=== PATIENT | female | born 1985 | race African-American/Black ===

== ENCOUNTER 2021-10-17 04:55 | Inpatient (IN) | payer OTHER ==
[2021-10-16 14:30] LABS: Hemoglobin 11.4 g/dL (12.0-15.5); Mean Corpuscular HGB CONC 33.3 g/dL (32.0-36.0); Mean Corpuscular Hemoglobin 27.4 pg (27.0-33.0); Mean Corpuscular Volume 82.2 fl (81.6-98.3); Mean Platelet Volume 9.8 fl (7.4-10.4); Platelet Count 323 10x3/uL (150-450); RBC Distribution Width 15.2 % (11.5-14.5); Red Blood Cell (RBC) Count 4.16 10x6/uL (3.90-5.03); White Blood Cell (WBC) Count 10.5 10x3/uL (3.5-10.5)
[2021-10-16 15:28] LABS: Syphilis Antibody Nonreactive (Nonreactive); Syphilis Antibody Index 0.03 S/CO (<1.00 Non-Reactive)
[2021-10-16 15:29] LABS: Hep B Surf Ag Non-Reactive S/CO (NonReactive)
[2021-10-16 15:35] LABS: HBSAg Index 0.19 S/CO (0-0.99)
[2021-10-17 05:28] VITALS: BMI 38.9
[2021-10-17] MEDS ORDERED: Promethazine HCl 25 MG SUPP PR PRN (06:58)
[2021-10-17] MEDS ORDERED: Acetaminophen 500 MG TAB PO PRN (06:58)
[2021-10-17] MEDS ORDERED: Docusate 100 MG CAP PO PRN (06:58)
[2021-10-17] MEDS ORDERED: Meperidine HCl/PF 25 MG/ML VIAL SLOW IVP PRN (06:58)
[2021-10-17] MEDS ORDERED: Ondansetron HCl/PF 4 MG/2 ML Vial IVP PRN (06:58)
[2021-10-17] MEDS ORDERED: HYDROmorphone 2 MG/ML VIAL SLOW IVP PRN (06:58)
[2021-10-17] MEDS ORDERED: hydrALAZINE 20 MG/ML VIAL SLOW IVP PRN ×2 (06:58→09:02)
[2021-10-17] MEDS ORDERED: Moisturizing Cream (Eucerin) 113 GM JAR TOP PRN (06:58)
[2021-10-17] MEDS ORDERED: Naloxone HCl 0.4 mg/ml Vial IVP PRN ×2 (06:58)
[2021-10-17] MEDS ORDERED: Ketorolac Tromethamine 30 MG/ML VIAL IVP PRN (06:58)
[2021-10-17] MEDS ORDERED: Fentanyl 100 MCG/2 ML VIAL SLOW IVP PRN (06:58)
[2021-10-17] MEDS ORDERED: Famotidine/PF 20 mg/2ml Vial SLOW IVP PRN (06:58)
[2021-10-17] MEDS ORDERED: Ondansetron PF 4 MG/2 ML Vial IVP PRN ×3 (06:58→09:02)
[2021-10-17] MEDS ORDERED: Promethazine HCl 25 MG/ML VIAL IM PRN ×3 (06:58→09:02)
[2021-10-17] MEDS ORDERED: Naloxone HCl 0.4 mg/ml Vial IV PRN (06:58)
[2021-10-17] MEDS ORDERED: Bicitra 30 ML UDCUP PO PRN (06:58)
[2021-10-17] MEDS ORDERED: Ketorolac Tromethamine 30 MG/ML VIAL IVP SCH (07:00)
[2021-10-17] MEDS ORDERED: ceFAZolin 2 GM/Dextrose 50 ML 2 GM in Premix Bag 1 BAG IVPB SCH (07:00)
[2021-10-17] MEDS ORDERED: Lactated Ringer's 1,000 ML IV SCH (07:00)
[2021-10-17] MEDS ORDERED: Communication Order-Pharmacy FS SCH (07:00)
[2021-10-17] MEDS ORDERED: Ondansetron PF 4 MG/2 ML Vial ONE (07:04)
[2021-10-17] MEDS ORDERED: Fentanyl 100 MCG/2 ML VIAL ONE (07:04)
[2021-10-17] MEDS ORDERED: Morphine PF 10 MG/10 ML VIAL ONE (07:04)
[2021-10-17] MEDS ORDERED: Phenylephrine 10 MG/ML VIAL ONE (07:04)
[2021-10-17] MEDS ORDERED: Oxytocin 10 UNITS/ML VIAL ONE ×2 (07:05→08:39)
[2021-10-17] MEDS ORDERED: Ketorolac Tromethamine 30 MG/ML VIAL ONE ×2 (07:05→08:05)
[2021-10-17] MEDS ORDERED: Misoprostol 200 MCG TAB ONE (07:32)
[2021-10-17] MEDS ORDERED: Carboprost 250 MCG/ML AMP ONE (07:32)
[2021-10-17] MEDS ORDERED: diphenhydrAMINE 25 MG CAP PO PRN (09:02)
[2021-10-17] MEDS ORDERED: Lanolin Ointment 7 GM TUBE TOP PRN (09:02)
[2021-10-17] MEDS ORDERED: Boostrix 0.5 ML (Tdap) VIAL IM ONE (09:02)
[2021-10-17] MEDS ORDERED: Carboprost 250 MCG/ML AMP IM SCH (12:30)
[2021-10-17] MEDS: diphenhydrAMINE 50 MG/ML VIAL IVP PRN ×2 (12:37→17:34)
[2021-10-17] MEDS ORDERED: NS w/ Oxytocin 30 units 500 ML ONE (13:36)
[2021-10-17] MEDS: Ibuprofen 800 MG TAB PO SCH (17:22)
[2021-10-17] MEDS ORDERED: Diphenoxylate HCl/Atropine Tablet PO PRN (20:00)
[2021-10-17] MEDS: Docusate 100 MG CAP PO SCH (21:54)
[2021-10-17] MEDS: Labetalol HCl 100 MG TAB PO SCH (21:54)
[2021-10-18] MEDS: diphenhydrAMINE 50 MG/ML VIAL IVP PRN (00:17)
[2021-10-18 03:54] LABS: Mean Corpuscular HGB CONC 33.1 g/dL (32.0-36.0); Mean Corpuscular Hemoglobin 27.1 pg (27.0-33.0); Mean Platelet Volume 9.3 fl (7.4-10.4); Platelet Count 209 10x3/uL (150-450); RBC Distribution Width 15.5 % (11.5-14.5); Red Blood Cell (RBC) Count 2.95 10x6/uL (3.90-5.03); White Blood Cell (WBC) Count 11.8 10x3/uL (3.5-10.5)
[2021-10-18] MEDS: Ibuprofen 800 MG TAB PO SCH ×3 (08:22→17:00)
[2021-10-18] MEDS: HYDROcodone/Acetaminophen 5/325 mg Tablet PO PRN ×2 (09:53→17:00)
[2021-10-18] MEDS: Prenatal Vitamin 1 TAB PO SCH (09:53)
[2021-10-18] MEDS: Docusate 100 MG CAP PO SCH ×2 (09:53→21:24)
[2021-10-18] MEDS: Ferrous Sulfate 325 MG TAB PO SCH (09:53)
[2021-10-18] MEDS: Labetalol HCl 100 MG TAB PO SCH ×2 (09:53→21:24)
[2021-10-18] MEDS: Simethicone Chewable 80 MG TAB PO PRN ×3 (09:56→21:24)
[2021-10-19] MEDS: Ibuprofen 800 MG TAB PO SCH ×4 (00:11→21:59)
[2021-10-19 04:55] LABS: Hemoglobin 7.2 g/dL (12.0-15.5)
[2021-10-19] MEDS: HYDROcodone/Acetaminophen 5/325 mg Tablet PO PRN ×3 (08:28→22:03)
[2021-10-19] MEDS: Simethicone Chewable 80 MG TAB PO PRN ×2 (08:29→16:33)
[2021-10-19] MEDS: Ferrous Sulfate 325 MG TAB PO SCH (08:29)
[2021-10-19] MEDS: Prenatal Vitamin 1 TAB PO SCH (08:29)
[2021-10-19] MEDS: Docusate 100 MG CAP PO SCH ×2 (08:29→21:59)
[2021-10-19] MEDS: Labetalol HCl 100 MG TAB PO SCH ×2 (08:29→21:59)
[2021-10-20 03:01] LABS: Hemoglobin 7.2 g/dL (12.0-15.5)
[2021-10-20] MEDS: Ibuprofen 800 MG TAB PO SCH ×2 (05:22→14:11)
[2021-10-20] MEDS: HYDROcodone/Acetaminophen 5/325 mg Tablet PO PRN ×2 (05:26→11:20)
[2021-10-20] MEDS: Docusate 100 MG CAP PO SCH (08:37)
[2021-10-20] MEDS: Ferrous Sulfate 325 MG TAB PO SCH (08:37)
[2021-10-20] MEDS: Prenatal Vitamin 1 TAB PO SCH (08:37)
[2021-10-20] MEDS: Labetalol HCl 100 MG TAB PO SCH (08:37)
[2021-10-20 11:22] VITALS: TEMP 98.4
[2021-10-20 15:32] VITALS: BP 155/81
== END 2021-10-20 16:55 | disposition home or self-care (01) | DRG 787 ==
LOC: CSHLD 04:55 → CSHPP 16:30
PROVIDERS: ADMIT Student in an Organized Health Care Education/Training Program; ATTEND Student in an Organized Health Care Education/Training Program
PROC: 10D00Z1 Extraction of Products of Conception, Low, Open Approach (ICD-10-PCS; principal; 2021-10-17)
DX: O34.211 Maternal care for low transverse scar from previous cesarean delivery (principal); O10.92 Unspecified pre-existing hypertension complicating childbirth; O99.334 Smoking (tobacco) complicating childbirth; F17.210 Nicotine dependence, cigarettes, uncomplicated; O99.892 Other specified diseases and conditions complicating childbirth; N73.6 Female pelvic peritoneal adhesions (postinfective); O99.02 Anemia complicating childbirth; D64.9 Anemia, unspecified; Z20.822 Contact with and (suspected) exposure to COVID-19; Z82.49 Family history of ischemic heart disease and other diseases of the circulatory system; Z79.82 Long term (current) use of aspirin; Z79.899 Other long term (current) drug therapy; Z71.6 Tobacco abuse counseling; Z3A.37 37 weeks gestation of pregnancy; Z37.0 Single live birth; D56.3 Thalassemia minor; Z90.49 Acquired absence of other specified parts of digestive tract
CPT/HCPCS: 36415; 51702; 84443; 85014; 85018; 85027; 86780; 86850; 86900; 86901; 87340; J1200; J1885; J2274; J2370; J2405; J2590; J3010; J3490; S0028; U0003; U0005